=== PATIENT | female | born 1945 | race Caucasian/White ===

== ENCOUNTER 2020-10-20 11:59 | Emergency (ER) | payer OTHER, SELFPAY ==
[2020-10-20 12:10] VITALS: BP 143/66; PULSE 78; RESP 14; TEMP 36.8; O2SAT 94; BMI 24.3
--- NOTE | 2020-10-20 12:17 | DI.RAD.S_ITS ---
PROCEDURE: XR FOOT RT MIN 3V INDICATIONS: foot injury TECHNIQUE: 3 views of the foot were acquired. COMPARISON: None. FINDINGS: Bones: No fractures or dislocations. No suspicious bony lesions. Metatarsus adductus and hallux valgus. Moderate 1st metatarsophalangeal joint and multiple interphalangeal joint degeneration. Soft tissues: No tibiotalar joint effusion. Achilles tendon appears normal. Bunion and bunionette. IMPRESSION: 1. No acute osseous abnormalities. 2. Metatarsus adductus and hallux valgus. 3. Moderate degenerative joint disease. Dictated by: Estefany Bingham M.D. on 10/20/2020 at 13:05 Approved by: Estefany Bingham M.D. on 10/20/2020 at 13:08
--- NOTE | 2020-10-20 13:22 | ED_ITS ---
HPI - Extremity Injury (Lower) General Chief Complaint: Extremity Injury, Lower Stated Complaint: RIGHT FOOT INJURY Time Seen by Provider: 10/20/20 12:48 Source: patient Mode of arrival: Ambulatory Limitations: no limitations History of Present Illness HPI Narrative: 71F nonsmoker presents with a complaint of right foot pain after inverting her foot while playing pickle ball yesterday. She has some pain and swelling with ambulation. She denies other injury and is otherwise well and free of complaint. She has tried icing and some [id number] pain medications. She went to a physical therapy appointment today and when they saw her foot they encouraged her to be checked out. Related Data Allergies Allergy/AdvReac Type Severity Reaction Status Date / Time fluoxetine [From Prozac] Allergy Verified 10/20/20 12:14 prochlorperazine Allergy Verified 10/20/20 12:14 [From Compazine] warfarin [From Coumadin] Allergy Verified 10/20/20 12:14 Review of Systems Constitutional Constitutional: Denies fatigue and Denies frequent falls Cardiovascular Cardiovascular: Denies chest pain, Denies rapid heart rate and Denies dyspnea Respiratory Respiratory: Denies dyspnea Gastrointestinal Gastrointestinal: Denies abdominal pain, Denies nausea and Denies vomiting Musculoskeletal Musculoskeletal: Reports arthralgias and Reports joint swelling Integumentary/Breasts Skin/Breast: Reports unusual bruising Neurologic Neurologic: Denies frequent falls Endocrine Endocrine: Denies fatigue Patient History Social History Smoking Status: Unknown if ever smoked Smoking Status: Unknown if ever smoked alcohol intake frequency: holidays/special occasions only Substance Use Type: does not use Exam Narrative Exam Narrative: GEN: AOx3 and in mild distress EYES: Pupils are equal, round, and reactive to light and accommodation. Extraoccular muscles are intact bilaterally. There is no subconjunctival hemorrhage or exudate. CHEST: Lungs are clear to auscultation bilaterally and free of wheezes, rales, or rhonchi. Heart rate is regular rhythm, there are no murmurs, clicks, rubs, or gallops. There is no chest wall tenderness. ABD: Abdomen is soft and nontender. There is no guarding or rebound. Bowel sounds are normal in all 4 quadrants. There is no mass or organomegaly. EXT: Right foot with dark purple ecchymosis overlying the 3rd, 4th and 5th metatarsals, no numbness is noted. Cap refill is intact. No bony tenderness on malleoli. No ligamentous instability. No pain on palpation of knee or hip. SKIN: Warm, pink, and dry. No erythema or rash Initial Vital Signs Initial Vital Signs: Vital Signs Temperature 98.3 F 10/20/20 12:10 Pulse Rate 78 10/20/20 12:10 Respiratory Rate 14 10/20/20 12:10 Blood Pressure 143/66 H 10/20/20 12:10 Pulse Oximetry 94 10/20/20 12:10 Procedures Orthopedic Splinting/Casting Injury #1: Side: right Lower Extremity Injury Location: foot Lower Extremity Immobilizer: post-op shoe Post splinting neuro exam: intact Post splinting vascular exam: intact Placed by: Nursing Course Orders Ordered: ED Orders 10/20/20 12:17 XR foot RT min 3V Stat Vital Signs Vital signs: Vital Signs - 8 hr 10/20/20 12:10 Temperature 98.3 F Pulse Rate 78 Respiratory Rate 14 Blood Pressure 143/66 H Pulse Oximetry 94 MDM - Extremity Injury (Lower) Imaging Data Extremity x-ray #1: Radiologist's Impression: [address] [id number] ReportSigned Patient: Kristel Bishop BMR#: [id number]: [id number]/Sex: 75 / FDate of Service: 10/20/20Loc: EDAccession Number: [id number] Procedure: XR foot RT min 3V Ordering Provider: Bri Ring D.O. PROCEDURE: XR FOOT RT MIN 3V INDICATIONS: foot injury TECHNIQUE: 3 views of the foot were acquired. COMPARISON: None. FINDINGS: Bones: No fractures or dislocations. No suspicious bony lesions. Metatarsus adductus and hallux valgus. Moderate 1st metatarsophalangeal joint and multiple interphalangeal joint degeneration. Soft tissues: No tibiotalar joint effusion. Achilles tendon appears normal. Bunion and bunionette. IMPRESSION: 1. No acute osseous abnormalities. 2. Metatarsus adductus and hallux valgus. 3. Moderate degenerative joint disease. Dictated by: Estefany Bingham M.D. on 10/20/2020 at 13:05 Approved by: Estefany Bingham M.D. on 10/20/2020 at 13:08 Discharge Plan Departure Patient Disposition: Home Clinical Impression: Foot sprain Qualifiers: Encounter type: initial encounter Laterality: right Qualified Code(s): S93.601A - Unspecified sprain of right foot, initial encounter Instructions: DI for Foot Pain Activity Restrictions/Additional Instructions: *You have been diagnosed with [right foot sprain, x-rays reassuring and no fractures noted] *What to do: *Please continue to take your regular medications as directed. [ ] New medication prescriptions sent to your pharmacy: [ ] [ ] New medication written as a paper prescription [x] No new medications given *Please follow up with your primary care provider in 2-3 days, call for an appointment. Let them know you were seen in the Emergency Department and that we ask that you be seen in follow up. We will electronically transmit a record of today's note if your PCP is in our system *If you do not have a primary care provider please contact the [facility] Resource line at [phone]. They will ask some questions about your medical history and help get you set up with a doctor in the community. *Return to Emergency Department if you should have any new, worsening or concerning symptoms, such as [fever greater than 101 F, shaking chills, worsening pain, persistent vomiting or other bothersome symptoms]
== END 2020-10-20 14:37 | disposition home or self-care (01) ==
PROVIDERS: Emergency Provider Emergency Medicine
DX: S93.601A Unspecified sprain of right foot, initial encounter (principal); X50.1XXA Overexertion from prolonged static or awkward postures, initial encounter
CPT/HCPCS: 73630; 99281; 99283